=== PATIENT | male | born 1965 | race Caucasian/White ===

== ENCOUNTER 2022-03-06 18:44 | Emergency (ER) | payer SELFPAY ==
[2022-03-06 19:28] LABS: #Eosinphils 0.1 thou/uL (0.0-0.7); #Monocytes 1.2 thou/uL (0.11-0.59); #Neutrophils 7.2 thou/uL (1.40-6.50); %Basophils 0.2 % (0.0-1.0); %Eosinophils 1.3 % (0.0-10.0); %Lymphocytes 18.6 % (21.0-51.0); %Monocytes 11.7 % (0.0-10.0); %Neutrophils 68.2 % (42.0-75.0); Hemoglobin 13.2 g/dL (14.0-18.0); Mean Corpuscular HGB CONC 31.7 g/dL (32.0-36.0); Mean Corpuscular Hemoglobin 26.3 pg (27.0-31.0); Mean Corpuscular Volume 82.9 fL (78.0-98.0); Mean Platelet Volume 7.1 fL (7.4-10.4); Platelet Count 361 thou/uL (130-400); RBC Distribution Width 12.7 % (11.5-14.5); Red Blood Cell (RBC) Count 5.03 mill/uL (4.70-6.10); White Blood Cell (WBC) Count 10.5 thou/uL (4.8-10.8)
[2022-03-06 19:46] LABS: Bacteria/HPF None Seen HPF (None Seen); Bilirubin Negative (Negative); Blood, Urine 1+ (Negative); Clarity Clear (Clear); Glucose, Urine (Dipstick) Normal (Negative); Ketone, Urine Negative (Negative); Leukocyte Negative Leu/uL (Negative); Nitrite Negative (Negative); Protein, Urine (Dipstick) Negative (Neg-Trace); Specific Gravity, Urine 1.011 (1.002-1.036); Squamous Epithelial None Seen HPF (0-3); Urobilinogen Normal mg/dL (Less than 2); WBC/HPF 0-3 HPF (0-3)
[2022-03-06 19:51] LABS: ALT (SGPT) 18 U/L (8-55); AST (SGOT) 17 U/L (5-34); Albumin 4.1 g/dL (3.5-5.0); Alkaline Phosphatase 121 U/L (40-110); Anion Gap 17 mmol/L (10-20); BUN (Urea Nitrogen) 11 mg/dL (8.4-25.7); Bilirubin, Total 0.7 mg/dL (0.2-1.2); Calc. Creatinine Clearance 0 mL/min (70-130); Calcium 9.3 mg/dL (7.8-10.44); Carbon Dioxide 22 mmol/L (22-29); Chloride 102 mmol/L (98-107); Glucose 98 mg/dL (70-105); Protein, Total 8.1 g/dL (6.0-8.3); Sodium 137 mmol/L (136-145)
[2022-03-06] MEDS ORDERED: Piperacillin/Tazobactam 4.5 GM VIAL ONE (19:58)
[2022-03-06] MEDS ORDERED: Colchicine 0.6 MG TAB ONE (20:05)
[2022-03-06] MEDS ORDERED: Ketorolac Tromethamine 30 MG/ML VIAL ONE (20:07)
[2022-03-06] MEDS ORDERED: VANCOMYCIN 2 GRAM/400 ML BAG 2 GM in Premix Bag 1 BAG IVPB SCH (20:15)
[2022-03-06] MEDS ORDERED: Ondansetron PF 4 MG/2 ML Vial ONE (20:57)
== END 2022-03-06 22:48 | disposition home or self-care (01) ==
LOC: ERS 18:44
DX: M10.9 Gout, unspecified (principal); N13.2 Hydronephrosis with renal and ureteral calculous obstruction; I10 Essential (primary) hypertension; F17.220 Nicotine dependence, chewing tobacco, uncomplicated
CPT/HCPCS: 36415; 74176; 80053; 81003; 81015; 83605; 84550; 85025; 85652; 86140; 87040; 87086; 96365; 96367; 96375; J1885; J2405; J2543; J3370

== ENCOUNTER 2024-06-18 00:43 | Emergency (ER) | payer OTHER, SELFPAY ==
[2024-06-18] MEDS ORDERED: HYDROcodone/Acetaminophen 5/325 mg Tablet ONE (04:37)
[2024-06-18] MEDS ORDERED: Ketorolac Tromethamine 30 MG (1 mL) VIAL ONE (05:52)
[2024-06-18] MEDS ORDERED: Morphine 2 MG/ML VIAL ONE (05:52)
[2024-06-18] MEDS ORDERED: Lidocaine 1% w/Epinephrine 1:100K 20 ML VIAL ONE (05:53)
[2024-06-18 06:32] LABS: #Basophils 0.03 10x3/uL (0.0-0.2); %Basophils 0.3 % (0.0-1.0); %Eosinophils 0.6 % (0.0-10.0); %Lymphocytes 17.4 % (21.0-51.0); %Monocytes 13.8 % (0.0-10.0); %Neutrophils 67.5 % (42.0-75.0); Hemoglobin 10.9 g/dL (14.0-18.0); Mean Corpuscular HGB CONC 31.1 g/dL (32.0-36.0); Mean Corpuscular Hemoglobin 24.8 pg (27.0-31.0); Mean Corpuscular Volume 79.7 fL (78.0-98.0); Mean Platelet Volume 10.4 fL (7.4-10.4); Platelet Count 344 10x3/uL (130-400); RBC Distribution Width 14.9 % (11.5-14.5); Red Blood Cell (RBC) Count 4.39 mill/uL (4.70-6.10)
[2024-06-18 06:47] LABS: CRP,High Sensitivity (Inhouse) 8.16 mg/dL (< or = 0.5)
[2024-06-18 06:50] LABS: ALT (SGPT) 17 U/L (8-55); AST (SGOT) 31 U/L (5-34); Albumin 3.4 g/dL (3.5-5.0); Alkaline Phosphatase 103 U/L (40-110); Anion Gap 14 mmol/L (10-20); BUN (Urea Nitrogen) 10 mg/dL (8.4-25.7); Bilirubin, Total 0.8 mg/dL (0.2-1.2); Calc. Creatinine Clearance 0 mL/min (70-130); Calcium 9.1 mg/dL (7.8-10.44); Carbon Dioxide 18 mmol/L (22-29); Chloride 106 mmol/L (98-107); Estimated GFR 92; Globulin 4.5 g/dL (2.4-3.5); Glucose 114 mg/dL (70-105); Protein, Total 7.9 g/dL (6.0-8.3); Sodium 134 mmol/L (136-145)
== END 2024-06-18 09:57 | disposition home or self-care (01) ==
LOC: ERS 00:43
DX: S52.121A Displaced fracture of head of right radius, initial encounter for closed fracture (principal); M70.21 Olecranon bursitis, right elbow; F17.220 Nicotine dependence, chewing tobacco, uncomplicated; I10 Essential (primary) hypertension; W19.XXXA Unspecified fall, initial encounter
CPT/HCPCS: 80053; 85025; 86141; 87040; 96374; 96375; J1885; J2272